=== PATIENT | male | born 1960 | race Caucasian/White ===

== ENCOUNTER 2021-03-01 18:12 | Emergency (ER) | payer OTHER ==
[~2021-03-01] VITALS: Ht 175.3 cm; Wt 94.0 kg
[2021-03-01 19:55] VITALS: BP 141/76
== END 2021-03-01 20:20 | disposition home or self-care (01) ==
LOC: ER 18:12
DX: R42 Dizziness and giddiness (principal); R11.2 Nausea with vomiting, unspecified; R61 Generalized hyperhidrosis
CPT/HCPCS: 36415; 71046; 80053; 84484; 85025; 93005; 96361; 96374; 99285; J2405; J7030